=== PATIENT | male | born 1950 | race African-American/Black ===

== ENCOUNTER 2020-06-19 13:24 | Outpatient (REF) | payer MEDICARE, MEDICAID, SELFPAY | END 2020-06-19 13:25 | disposition home or self-care (01) | LOC: HO.US 13:24 | PROVIDERS: Visit Provider Internal Medicine Hypertension Specialist | DX: Z13.89 Encounter for screening for other disorder (principal) ==

== ENCOUNTER 2020-06-23 13:18 | Outpatient (REF) | payer MEDICARE, MEDICAID, SELFPAY ==
--- NOTE | ~2020-06-23 | US_ITS ---
EXAMINATION: US RETROPERITONEAL COMPLETE (RENAL) CLINICAL INFORMATION: Chronic kidney disease stage 3. COMPARISON: Limited abdominal ultrasound with elastography 06/21/2018. Ultrasound abdomen complete 05/17/2018. TECHNIQUE: Real-time imaging of the kidneys and bladder. FINDINGS: RIGHT KIDNEY: 10.4 x 5.0 x 4.9 cm (SAG x AP x TRV). The kidney is normal in size, contour, and echogenicity. Renal cortical thickness is normal. No calculi or focal parenchymal lesions. No hydronephrosis. LEFT KIDNEY: 11.2 x 5.5 x 4.5 cm (SAG x AP x TRV). The kidney is normal in size, contour, and echogenicity. Renal cortical thickness is normal. No renal calculi or hydronephrosis. There are 2 anechoic cysts. In midpole a cyst measuring 1.2 x 1.1 x 1.3 cm. A lower pole cyst measuring 4.6 x 5.0 x 4.8 cm. There is an echogenic lesion in the midpole measuring 1.1 x 1.0 x 1.0 cm. BLADDER: Well distended and normal. Bilateral ureteral jets are demonstrated. Prevoid bladder volume is 145 mL. Postvoid bladder volume is 9.6 mL. Prostate volume 24.8 mL. US/US retroperitoneal comp IMPRESSION: 1. 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 2. Unremarkable right kidney. 3. Tiny postvoid residual bladder volume. The prostate gland is mildly enlarged.
== END 2020-06-23 13:19 | disposition home or self-care (01) ==
LOC: HO.US 13:18
PROVIDERS: Visit Provider Internal Medicine Hypertension Specialist
DX: N18.31 Chronic kidney disease, stage 3a (principal)
CPT/HCPCS: 76770

== ENCOUNTER 2021-02-02 10:35 | Emergency (ER) | payer MEDICARE, MEDICAID, SELFPAY ==
--- NOTE | 2021-02-02 | ECG_ITS ---
Test Reason : chest pain Blood Pressure : / mmHG Vent. Rate : 062 BPM Atrial Rate : 062 BPM P-R Int : 162 ms QRS Dur : 072 ms QT Int : 428 ms P-R-T Axes : 040 -01 032 degrees QTc Int : 434 ms Normal sinus rhythm Normal ECG No significant changes seen Referred By: Generic ED Physician Electronically Signed By:ISAÍAS BANEGAS MD
[2021-02-02 12:38] VITALS: BP 154/79; PULSE 65; RESP 18; TEMP 37.1; O2SAT 99; BMI 26.3
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
== END 2021-02-02 13:14 | disposition home or self-care (01) ==
PROVIDERS: Emergency Provider Emergency Medicine Emergency Medical Services; PCP Pediatrics
DX: S20.219A Contusion of unspecified front wall of thorax, initial encounter (principal); S50.11XA Contusion of right forearm, initial encounter; M70.51 Other bursitis of knee, right knee; Y04.2XXA Assault by strike against or bumped into by another person, initial encounter; I10 Essential (primary) hypertension; C61 Malignant neoplasm of prostate; Y93.9 Activity, unspecified; Y92.410 Unspecified street and highway as the place of occurrence of the external cause; Y99.9 Unspecified external cause status
CPT/HCPCS: 93005; 99283; 99284

== ENCOUNTER 2021-03-03 11:03 | Emergency (ER) | payer MEDICARE, MEDICAID, SELFPAY ==
--- NOTE | ~2021-03-03 | US_ITS ---
EXAMINATION: US VENOUS ULTRASOUND WITH DOPPLER LOWER EXTREMITY, LEFT CLINICAL INFORMATION: Left lower extremity pain. Assess for DVT. COMPARISON: None TECHNIQUE: Ultrasound of the deep veins is performed from the hip to the calf with compression sonography and color and pulse Doppler assessment. Spectral analysis with color-flow imaging is performed. FINDINGS: There is normal venous compression and respiratory variation and augmented flow. The visualized common femoral vein, superficial femoral vein, profunda femoral vein, popliteal vein, and the trifurcation region shows no evidence of deep venous thrombosis. No popliteal fossa cyst demonstrated. US/US venous duplex LE LT IMPRESSION: No DVT demonstrated in the left lower extremity.
--- NOTE | ~2021-03-03 | XR_ITS ---
EXAMINATION: XR ANKLE, LEFT XR FOOT, LEFT CLINICAL INFORMATION: Pain ankle and foot. No known trauma. COMPARISON: None TECHNIQUE: 2 views left ankle and 2 views of the left foot are obtained. A lateral view of the combined ankle and foot is also included for a total of 5 views. FINDINGS: The left ankle shows no fracture or dislocation. The malleoli are intact and the ankle mortise is symmetric. The talar dome shows no osteochondral lesion. There is no ankle joint narrowing or erosive change. The subtalar joint is unremarkable. The retrocalcaneal recess is preserved. No calcaneal spurring. The midfoot and forefoot show no fracture or dislocation. There are prominent osteoarthritic changes involving the first MTP with joint narrowing and subchondral sclerosis and osteophytes. Mild hallux valgus first MTP as well. XR/XR foot LT min 3V IMPRESSION: 1. Prominent osteoarthritis with mild hallux valgus first MTP. 2. No fracture or dislocation ankle or foot. No destructive process.
--- NOTE | ~2021-03-03 | XR_ITS ---
EXAMINATION: XR ANKLE, LEFT XR FOOT, LEFT CLINICAL INFORMATION: Pain ankle and foot. No known trauma. COMPARISON: None TECHNIQUE: 2 views left ankle and 2 views of the left foot are obtained. A lateral view of the combined ankle and foot is also included for a total of 5 views. FINDINGS: The left ankle shows no fracture or dislocation. The malleoli are intact and the ankle mortise is symmetric. The talar dome shows no osteochondral lesion. There is no ankle joint narrowing or erosive change. The subtalar joint is unremarkable. The retrocalcaneal recess is preserved. No calcaneal spurring. The midfoot and forefoot show no fracture or dislocation. There are prominent osteoarthritic changes involving the first MTP with joint narrowing and subchondral sclerosis and osteophytes. Mild hallux valgus first MTP as well. XR/XR ankle LT min 3V IMPRESSION: 1. Prominent osteoarthritis with mild hallux valgus first MTP. 2. No fracture or dislocation ankle or foot. No destructive process.
[2021-03-03 11:17] VITALS: BP 111/78; PULSE 68; RESP 16; TEMP 36.6; O2SAT 99; BMI 26.3
[2021-03-03] MEDS: oxyCODONE HCl Immed Release 5 MG TABLET PO (11:44)
[2021-03-03] MEDS: Ibuprofen 800 MG TABLET PO (11:45)
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
== END 2021-03-03 13:33 | disposition home or self-care (01) ==
PROVIDERS: Emergency Provider Emergency Medicine; PCP Pediatrics
DX: M25.572 Pain in left ankle and joints of left foot (principal); R60.0 Localized edema; Z79.899 Other long term (current) drug therapy
CPT/HCPCS: 73610; 73630; 93971; 99283; 99284

== ENCOUNTER 2021-04-04 10:25 | Emergency (ER) | payer MEDICARE, MEDICAID, SELFPAY ==
[2021-04-04 16:05] VITALS: BP 148/95; PULSE 59; TEMP 36.4; O2SAT 100; BMI 25.3
[2021-04-04 20:17] VITALS: BP 121/73; PULSE 69; RESP 17; TEMP 36.7; O2SAT 99
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
[2021-04-04] MEDS: Ibuprofen 400 MG TABLET PO (21:59)
[2021-04-04] MEDS: Lidocaine 4 % Patch ADH..PATCH 1 PATCH TRANSDERMA (22:00)
== END 2021-04-04 22:00 | disposition home or self-care (01) ==
PROVIDERS: Emergency Provider Student in an Organized Health Care Education/Training Program; PCP Pediatrics
DX: M54.50 Low back pain, unspecified (principal); I10 Essential (primary) hypertension; Z85.46 Personal history of malignant neoplasm of prostate
CPT/HCPCS: 99283; 99284